=== PATIENT | male | born 1925 | race Caucasian/White ===

== ENCOUNTER 2016-12-01 16:40 | Inpatient (IN) | payer MEDICARE ==
[~2016-12-01] VITALS: Ht 170.2 cm; Wt 64.6 kg
[2016-12-01 16:58] VITALS: BP 110/60
[2016-12-01] MEDS ORDERED: ACETAMINOPHEN325 M3 PO (17:15)
[2016-12-01] MEDS ORDERED: AMIODARONE HCL200 MG PO (17:17)
[2016-12-01] MEDS ORDERED: ASPIRIN ADULT L81 M1 PO (17:18)
[2016-12-01] MEDS ORDERED: LIPITOR10 MG PO (17:19)
[2016-12-01] MEDS ORDERED: ATIVAN1 MG PO (17:19)
[2016-12-01] MEDS ORDERED: LAXATIVE10 MG R (17:21)
[2016-12-01] MEDS ORDERED: COLACE100 MG PO (17:21)
[2016-12-01] MEDS ORDERED: Coumadin2 MG PO (17:22)
[2016-12-01] MEDS ORDERED: LANOXIN62.5 MCG PO (17:22)
[2016-12-01] MEDS ORDERED: FINASTERIDE5 M1 PO (17:23)
[2016-12-01] MEDS ORDERED: LASIX20 MG PO (17:23)
[2016-12-01] MEDS ORDERED: FLOMAX0.4 MG PO (17:23)
[2016-12-01] MEDS ORDERED: LISINOPRIL20 MG PO (17:24)
[2016-12-01] MEDS ORDERED: MAGNESIUM400 M1 PO (17:24)
[2016-12-01] MEDS ORDERED: MILK OF MA400 MG/5 M PO (17:27)
[2016-12-01] MEDS ORDERED: PROTONIX40 MG PO (17:27)
[2016-12-01] MEDS ORDERED: MULTI VITAMINS1 TAB PO (17:27)
[2016-12-01] MEDS ORDERED: ROXICODONE5 MG PO (17:28)
[2016-12-01] MEDS ORDERED: REMERON SOLTAB15 MG PO (17:28)
[2016-12-01] MEDS ORDERED: ZINC SULFATE220 M2 PO (17:29)
[2016-12-01 17:44] LABS: INTERNATIONAL NORM RATIO 1.3 (2.0-3.5); PROTHROMBIN TIME 13.8 SECONDS (9.0-12.4)
[2016-12-01 17:48] LABS: BASO # 0.1 10*3/uL (0.0-0.1); BASO % 1.3 % (0.0-1.0); EOS # 0.9 10*3/uL (0.0-0.4); EOS % 10.5 % (1.0-4.0); HEMATOCRIT 32.7 % (42.0-52.0); HEMOGLOBIN 10.4 g/dl (14.0-18.0); IG # 0.1 10*3/uL (0.0-0.1); LYMPH # 1.8 10*3/uL (1.3-4.4); LYMPH % 21.6 % (27.0-41.0); MEAN CELL VOLUME 93.4 fl (80.0-94.0); MEAN CORPUSCULAR HGB 29.7 pg (27.0-31.0); MEAN CORPUSCULAR HGB CONC 31.8 g/dl (33.0-37.0); MEAN PLATELET VOLUME 11.7 fl (9.6-12.3); MONO # 0.8 10*3/uL (0.1-1.0); MONO % 9.6 % (3.0-9.0); NEUT # 4.8 10*3/uL (2.3-7.9); NEUT % 56.4 % (47.0-73.0); PLATELET COUNT AUTOMATED 151 10*3/uL (130-400); RED CELL DISTRI WIDTH 16.7 % (0-14.5); WHITE BLOOD COUNT 8.5 10*3/uL (4.8-10.8)
[2016-12-01 18:06] LABS: ALBUMIN 2.3 gm/dl (3.1-4.5); BILIRUBIN, TOTAL 0.3 mg/dl (0.2-1.0); C-REACTIVE PROTEIN 1.39 MG/DL (0-0.3); MAGNESIUM 1.6 mg/dL (1.5-2.1); POTASSIUM 5.2 mmol/L (3.5-5.1)
[2016-12-01 18:08] LABS: CKMB 8.3 ng/ml (0.5-3.6)
[2016-12-01 18:09] LABS: TROPONIN I 2.15 ng/ml (<0.045)
[2016-12-01 18:22] LABS: DIGOXIN 1.42 ng/ml (0.8-2.0)
[2016-12-01 19:33] LABS: BILIRUBIN NEGATIVE (NEGATIVE); BLOOD NEGATIVE (NEGATIVE); CLARITY CLEAR (CLEAR); COLOR YELLOW (YELLOW); GLUCOSE NEGATIVE (NEGATIVE); KETONE NEGATIVE (NEGATIVE); LEUKO ESTERASE NEGATIVE (NEGATIVE); NITRITE NEGATIVE (NEGATIVE); PROTEIN NEGATIVE (NEGATIVE); UROBILINOGEN 0.2 E.U./dl (0.2-1.0)
[2016-12-01 19:45] LABS: BACTERIA TRACE; URINE REFLEX COMMENT NO (NO)
[2016-12-01 20:24] VITALS: BP 188/84
[2016-12-01 21:13] LABS: CKMB 7.7 ng/ml (0.5-3.6)
[2016-12-01 21:14] LABS: TROPONIN I 1.91 ng/ml (<0.045)
[2016-12-01 22:10] VITALS: BP 142/88
[2016-12-01 23:30] VITALS: BP 145/75
[2016-12-02 00:18] LABS: CKMB 6.5 ng/ml (0.5-3.6)
[2016-12-02 00:19] LABS: TROPONIN I 1.67 ng/ml (<0.045)
[2016-12-02] MEDS ORDERED: LOPRESSOR25 MG PO (01:55)
[2016-12-02 04:03] VITALS: BP 109/60
[2016-12-02 08:00] VITALS: BP 118/60
[2016-12-02 08:17] LABS: BASO # 0.1 10*3/uL (0.0-0.1); BASO % 1.1 % (0.0-1.0); EOS # 0.6 10*3/uL (0.0-0.4); EOS % 7.2 % (1.0-4.0); HEMATOCRIT 32.4 % (42.0-52.0); HEMOGLOBIN 10.4 g/dl (14.0-18.0); LYMPH # 1.5 10*3/uL (1.3-4.4); LYMPH % 18.3 % (27.0-41.0); MEAN CORPUSCULAR HGB 29.5 pg (27.0-31.0); MEAN CORPUSCULAR HGB CONC 32.1 g/dl (33.0-37.0); MEAN PLATELET VOLUME 11.6 fl (9.6-12.3); MONO # 0.7 10*3/uL (0.1-1.0); NEUT # 5.2 10*3/uL (2.3-7.9); NEUT % 63.9 % (47.0-73.0); PLATELET COUNT AUTOMATED 156 10*3/uL (130-400); RED BLOOD COUNT 3.52 10*6/uL (4.50-5.90); RED CELL DISTRI WIDTH 16.5 % (0-14.5); WHITE BLOOD COUNT 8.1 10*3/uL (4.8-10.8)
[2016-12-02 08:25] LABS: INTERNATIONAL NORM RATIO 1.4 (2.0-3.5); PROTHROMBIN TIME 15.1 SECONDS (9.0-12.4)
[2016-12-02 08:41] LABS: ALBUMIN 2.3 gm/dl (3.1-4.5); BILIRUBIN, TOTAL 0.5 mg/dl (0.2-1.0); FREE T4 1.51 ng/dl (0.76-1.46); MAGNESIUM 1.4 mg/dL (1.5-2.1); PHOSPHOROUS 3.1 mg/dL (2.5-4.9); TOTAL PROTEIN 6.7 gm/dL (6.4-8.2)
[2016-12-02 08:45] LABS: THYROID STIM HORMONE (HS) 1.65 uIU/ml (0.358-4.75)
[2016-12-02 08:47] LABS: POTASSIUM 4.1 mmol/L (3.5-5.1)
[2016-12-02 09:28] LABS: VITAMIN D, 25-HYDROXY 29.3 ng/mL (30-100)
[2016-12-02 09:29] LABS: FOLIC ACID 12.04 ng/mL (>5.38)
[2016-12-02 12:00] VITALS: BP 100/61
[2016-12-02 16:00] VITALS: BP 103/52
[2016-12-02 20:04] VITALS: BP 110/55
[2016-12-02 23:58] VITALS: BP 126/57
[2016-12-03 04:36] VITALS: BP 139/61
[2016-12-03 06:07] LABS: BASO # 0.1 10*3/uL (0.0-0.1); BASO % 1.1 % (0.0-1.0); EOS # 1.1 10*3/uL (0.0-0.4); EOS % 14.2 % (1.0-4.0); HEMATOCRIT 28.3 % (42.0-52.0); IG # 0.1 10*3/uL (0.0-0.1); LYMPH # 1.3 10*3/uL (1.3-4.4); LYMPH % 17.8 % (27.0-41.0); MEAN CELL VOLUME 91.9 fl (80.0-94.0); MEAN CORPUSCULAR HGB 29.2 pg (27.0-31.0); MEAN CORPUSCULAR HGB CONC 31.8 g/dl (33.0-37.0); MONO # 0.7 10*3/uL (0.1-1.0); NEUT # 4.3 10*3/uL (2.3-7.9); NEUT % 57.2 % (47.0-73.0); PLATELET COUNT AUTOMATED 128 10*3/uL (130-400); RED BLOOD COUNT 3.08 10*6/uL (4.50-5.90); RED CELL DISTRI WIDTH 16.6 % (0-14.5); WHITE BLOOD COUNT 7.5 10*3/uL (4.8-10.8)
[2016-12-03 06:10] LABS: POTASSIUM 3.9 mmol/L (3.5-5.1)
[2016-12-03 08:00] VITALS: BP 136/73
[2016-12-03 12:00] VITALS: BP 111/54
[2016-12-03 16:00] VITALS: BP 96/45
[2016-12-03 20:00] VITALS: BP 117/54
[2016-12-04] VITALS: BP 120/60
[2016-12-04 04:00] VITALS: BP 177/77
[2016-12-04 04:30] VITALS: BP 140/70
[2016-12-04 05:48] LABS: BASO # 0.1 10*3/uL (0.0-0.1); BASO % 1.1 % (0.0-1.0); EOS # 1.2 10*3/uL (0.0-0.4); EOS % 14.5 % (1.0-4.0); HEMATOCRIT 30.3 % (42.0-52.0); HEMOGLOBIN 9.5 g/dl (14.0-18.0); IG # 0.1 10*3/uL (0.0-0.1); LYMPH # 1.6 10*3/uL (1.3-4.4); LYMPH % 19.9 % (27.0-41.0); MEAN CELL VOLUME 92.1 fl (80.0-94.0); MEAN CORPUSCULAR HGB 28.9 pg (27.0-31.0); MEAN CORPUSCULAR HGB CONC 31.4 g/dl (33.0-37.0); MEAN PLATELET VOLUME 11.8 fl (9.6-12.3); MONO # 0.7 10*3/uL (0.1-1.0); MONO % 8.5 % (3.0-9.0); NEUT # 4.6 10*3/uL (2.3-7.9); NEUT % 55.3 % (47.0-73.0); PLATELET COUNT AUTOMATED 138 10*3/uL (130-400); RED BLOOD COUNT 3.29 10*6/uL (4.50-5.90); RED CELL DISTRI WIDTH 16.6 % (0-14.5); WHITE BLOOD COUNT 8.2 10*3/uL (4.8-10.8)
[2016-12-04 06:03] LABS: INTERNATIONAL NORM RATIO 1.2 (2.0-3.5); PROTHROMBIN TIME 13.2 SECONDS (9.0-12.4)
[2016-12-04 06:16] LABS: BUN 28 mg/dl (7-24); CARBON DIOXIDE 30 mmol/L (21-32); CHLORIDE 106 mmol/L (98-107); EST GLOM FILT AFRICAN AMERICAN > 60 ml/min; GLUCOSE 98 mg/dL (65-99); POTASSIUM 3.8 mmol/L (3.5-5.1); SODIUM 144 mmol/L (136-145)
[2016-12-04 06:18] LABS: TROPONIN I 0.537 ng/ml (<0.045)
[2016-12-04 06:40] VITALS: BP 147/67
[2016-12-04 12:00] VITALS: BP 108/62
[2016-12-04 16:00] VITALS: BP 143/65
[2016-12-04] MEDS ORDERED: D-1000 185 MG-11 TAB PO (17:39)
[2016-12-04] MEDS ORDERED: RISPERIDONE0.25 M2 PO (17:39)
[2016-12-04] MEDS ORDERED: COUMADIN5 M2 PO (17:39)
[2016-12-04] MEDS ORDERED: CARVEDILOL6.25 MG PO (17:39)
[2016-12-04] MEDS ORDERED: RISPERIDONE0.5 MG PO (17:39)
[2016-12-04] MEDS ORDERED: Lovenox60 MG/0.6 SC (17:42)
== END 2016-12-04 21:10 | disposition home health service (06) | DRG 280 ==
LOC: ED 16:40 → EDHOLD 19:43 → ICCU 19:43 → 5E 19:50 → ICCU 20:02
PROVIDERS: Emergency Medicine; Internal Medicine Cardiovascular Disease; Internal Medicine Hospice and Palliative Medicine; Internal Medicine Nephrology
PROC: 02HV33Z Insertion of Infusion Device into Superior Vena Cava, Percutaneous Approach (ICD-10-PCS; principal; 2016-12-01)
DX: I21.4 Non-ST elevation (NSTEMI) myocardial infarction (principal); N17.0 Acute kidney failure with tubular necrosis; E43 Unspecified severe protein-calorie malnutrition; E87.0 Hyperosmolality and hypernatremia; E87.5 Hyperkalemia; I50.9 Heart failure, unspecified; I11.0 Hypertensive heart disease with heart failure; F03.90 Unspecified dementia, unspecified severity, without behavioral disturbance, psychotic disturbance, mood disturbance, and anxiety; I48.0 Paroxysmal atrial fibrillation; F05 Delirium due to known physiological condition; F33.9 Major depressive disorder, recurrent, unspecified; D64.9 Anemia, unspecified; I25.10 Atherosclerotic heart disease of native coronary artery without angina pectoris; E78.00 Pure hypercholesterolemia, unspecified; K21.9 Gastro-esophageal reflux disease without esophagitis; F41.1 Generalized anxiety disorder; I35.1 Nonrheumatic aortic (valve) insufficiency; N40.0 Benign prostatic hyperplasia without lower urinary tract symptoms; Z88.0 Allergy status to penicillin; Z88.2 Allergy status to sulfonamides; Z88.8 Allergy status to other drugs, medicaments and biological substances; Z79.1 Long term (current) use of non-steroidal anti-inflammatories (NSAID); Z79.01 Long term (current) use of anticoagulants; Z79.899 Other long term (current) drug therapy; Z95.1 Presence of aortocoronary bypass graft; Z98.42 Cataract extraction status, left eye; Z98.41 Cataract extraction status, right eye; Z87.891 Personal history of nicotine dependence; Z82.49 Family history of ischemic heart disease and other diseases of the circulatory system; Z79.82 Long term (current) use of aspirin; Z68.23 Body mass index [BMI] 23.0-23.9, adult

== ENCOUNTER 2016-12-04 21:57 | Inpatient (IN) | payer MEDICARE ==
[~2016-12-04] VITALS: Ht 170.1 cm; Wt 64.8 kg
[~2016-12-04 21:57] MED LIST: ACETAMINOPHEN325 M3 PO; AMIODARONE HCL200 MG PO; ASPIRIN ADULT L81 M1 PO; ATIVAN1 MG PO; CARVEDILOL6.25 MG PO; COLACE100 MG PO; COUMADIN5 M2 PO; Coumadin2 MG PO; D-1000 185 MG-11 TAB PO; FINASTERIDE5 M1 PO; FLOMAX0.4 MG PO; LANOXIN62.5 MCG PO; LASIX20 MG PO; LAXATIVE10 MG R; LIPITOR10 MG PO; LISINOPRIL20 MG PO; LOPRESSOR25 MG PO; Lovenox60 MG/0.6 SC; MAGNESIUM400 M1 PO; MILK OF MA400 MG/5 M PO; MULTI VITAMINS1 TAB PO; PROTONIX40 MG PO; REMERON SOLTAB15 MG PO; RISPERIDONE0.25 M2 PO; RISPERIDONE0.5 MG PO; ROXICODONE5 MG PO; ZINC SULFATE220 M2 PO
[2016-12-04 22:41] VITALS: BP 112/57
[2016-12-05 07:57] LABS: INTERNATIONAL NORM RATIO 1.2 (2.0-3.5)
[2016-12-05 08:01] LABS: THYROID STIM HORMONE (HS) 2.78 uIU/ml (0.358-4.75)
[2016-12-05 08:13] LABS: FOLIC ACID 8.44 ng/mL (>5.38); VITAMIN D, 25-HYDROXY 31.9 ng/mL (30-100)
[2016-12-05 08:16] VITALS: BP 117/56
[2016-12-05 20:54] VITALS: BP 112/52
[2016-12-06 07:46] VITALS: BP 114/63
[2016-12-06 08:00] LABS: INTERNATIONAL NORM RATIO 1.9 (2.0-3.5); PROTHROMBIN TIME 21.3 SECONDS (9.0-12.4)
[2016-12-06 21:01] VITALS: BP 116/64
[2016-12-07 07:51] LABS: PROTHROMBIN TIME 34.5 SECONDS (9.0-12.4)
[2016-12-07 08:53] VITALS: BP 110/78
[2016-12-07 19:59] VITALS: BP 108/66
[2016-12-08 07:47] LABS: PROTHROMBIN TIME 65.6 SECONDS (9.0-12.4)
[2016-12-08 07:48] VITALS: BP 108/64
[2016-12-08 07:50] LABS: INTERNATIONAL NORM RATIO 5.5 (2.0-3.5)
[2016-12-08] MEDS ORDERED: RISPERIDONE0.25 M2 PO (09:04)
[2016-12-08] MEDS ORDERED: ZINC SULFATE220 MG PO (09:04)
[2016-12-08] MEDS ORDERED: RISPERIDONE0.5 MG PO (09:04)
[2016-12-08] MEDS ORDERED: D-1000 185 MG-11 TAB PO (09:04)
[2016-12-08] MEDS ORDERED: RIVASTIGMINE1 EAC1 T (09:04)
[2016-12-08] MEDS ORDERED: DULOXETINE HCL60 MG PO (09:04)
[2016-12-08] MEDS ORDERED: COUMADIN5 M2 PO (11:58)
== END 2016-12-08 14:10 | disposition other institution (70) | DRG 885 ==
LOC: 3N 21:57
PROVIDERS: Family Medicine; Internal Medicine; Psychiatry & Neurology Psychiatry
DX: F33.9 Major depressive disorder, recurrent, unspecified (principal); I21.4 Non-ST elevation (NSTEMI) myocardial infarction; E43 Unspecified severe protein-calorie malnutrition; D64.9 Anemia, unspecified; I11.0 Hypertensive heart disease with heart failure; I50.32 Chronic diastolic (congestive) heart failure; I48.0 Paroxysmal atrial fibrillation; Z95.1 Presence of aortocoronary bypass graft; F41.1 Generalized anxiety disorder; K21.9 Gastro-esophageal reflux disease without esophagitis; I10 Essential (primary) hypertension; N40.0 Benign prostatic hyperplasia without lower urinary tract symptoms; E78.5 Hyperlipidemia, unspecified; I25.10 Atherosclerotic heart disease of native coronary artery without angina pectoris; E78.00 Pure hypercholesterolemia, unspecified; Z95.4 Presence of other heart-valve replacement; Z98.41 Cataract extraction status, right eye; Z98.42 Cataract extraction status, left eye; Z87.891 Personal history of nicotine dependence; Z82.49 Family history of ischemic heart disease and other diseases of the circulatory system; Z88.0 Allergy status to penicillin; Z88.2 Allergy status to sulfonamides; Z88.8 Allergy status to other drugs, medicaments and biological substances; Z79.01 Long term (current) use of anticoagulants; Z79.82 Long term (current) use of aspirin; Z68.22 Body mass index [BMI] 22.0-22.9, adult